=== PATIENT | female | born 1950 | race Caucasian/White ===

== ENCOUNTER 2019-10-04 08:30 | Inpatient (IN) ==
--- NOTE | 2019-09-13 12:36 | PAT Medication Instructions ---
Medication Instructions Date of Service September 13, 2019 Home Medications alprazolam 0.25 mg PO DAILY PRN cholecalciferol (vitamin D3) [Vitamin D3] 2,000 unit PO QPM duloxetine [Cymbalta] 60 mg PO QPM ibuprofen [Motrin IB] 200 mg PO QID PRN turmeric-turmeric ext-pepper 1,200 mg PO QPM vitamin N04-tzhmm acid 1 tab PO QPM meloxicam 15 mg PO QAM ASK your surgeon for instructions ibuprofen [Motrin IB] 200 mg PO QID PRN meloxicam 15 mg PO QAM STOP taking 2 weeks before surgery If surgery is within 2 weeks, stop taking as soon as possible. turmeric-turmeric ext-pepper 1,200 mg PO QPM Take morning of surgery With a small sip of water, OTHERWISE NOTHING TO EAT OR DRINK AFTER MIDNIGHT: alprazolam 0.25 mg PO DAILY PRN (if needed) Take evening before surgery alprazolam 0.25 mg PO DAILY PRN (if needed) cholecalciferol (vitamin D3) [Vitamin D3] 2,000 unit PO QPM duloxetine [Cymbalta] 60 mg PO QPM vitamin E20-xukli acid 1 tab PO QPM Other Notes If you have any questions please call us at [phone] or [phone] or [phone] or [phone]
--- NOTE | 2019-09-13 14:17 | Anesthesiology Consultation ---
Date of Service September 13, 2019 Assessment & Plan (1) Encounter for pre-operative examination: Chart Review Chart Review: Acceptable Risk for Surgery and Patient seen in Pre Admission Testing Teaching & Discussion Instructed NPO after midnight before surgery, except medications with 15 cc of water. Medication instructions provided according to the PAT guidelines. History Surgery Operation Date: 10/04/19 09:20 Proposed Procedures p Right Reverse Total Shoulder Arthroscopy - Eyad Young, Height/Weight Height: 5 ft 5 in Weight: 122.7 kg Allergies Allergy/AdvReac Type Severity Reaction Status Date / Time No Known Drug Allergies Allergy Unknown . Verified 09/13/19 11:50 Medications Home Medications Medication Instructions Recorded Confirmed Last Taken alprazolam 0.25 mg PO DAILY PRN 03/25/19 09/13/19 Unknown cholecalciferol (vitamin D3) 2,000 unit PO QPM 03/25/19 09/13/19 Unknown [Vitamin D3] duloxetine [Cymbalta] 60 mg PO QPM 03/25/19 09/13/19 Unknown ibuprofen [Motrin IB] 200 mg PO QID PRN 03/25/19 09/13/19 Unknown turmeric-turmeric ext-pepper 1,200 mg PO QPM 03/25/19 09/13/19 Unknown vitamin X58-wppkh acid 1 tab PO QPM 03/25/19 09/13/19 Unknown meloxicam 15 mg PO QAM 09/09/19 09/13/19 Unknown Past Medical History Medical History Anxiety Depression Fibromyalgia Morbid obesity Osteoarthritis Sleep apnea CPAP 13/ Exercise / Class Metabolic Activity II 4-5 Yardwork/Stairs/Walk up hill (Pt denies any chest pain but + SOB with 1 F OS -- does not have to stop to catch her breath but is huffing and puffing a little by the top. Does stairs daily at home.) Pt feels CABELLO is 2/2 obesity. Past Family History Family History Grandfather (Maternal) Colon cancer Past Surgical History Surgical History History of arthroscopy of right knee History of hysteroscopy D+C History of repair of rotator cuff LEFT Hx of cataract surgery BILAT Past Anesthesia History No Hx of Anesthesia Complications and No Family Hx of Anesthesia Complications History of PONV No Hx of PONV and No Hx of Motion Sickness Social History Smoking Status: Never smoker Do You Dip or Chew Tobacco: No Hx Alcohol Use: Yes Alcohol type: wine alcohol intake frequency: other Alcohol Intake Frequency Comment: RARE Hx Substance Use: No substance use type: does not use Review of Systems Pt denies any recent chest pain, shortness of breath above baseline, palpitations, cough, fever or URI. Physical Exam Vital Signs BP: 143/85 P: 78bpm SPO2: 95% RA T: 98.1 F R: 16 Constitutional + obese ENMT Mouth: + dental restorations (possibly a few crowns on molars) and + macroglossia; no chipped teeth and no loose teeth Thyromental Distance: > or= 3.5 Finger Breadths (3.5) Mallampati Class: III Neck + thick neck; neck extension not limited Respiratory normal respiratory effort Auscultation: lungs clear to auscultation bilaterally Cardiovascular Rate/Rhythm: regular rate and regular rhythm Heart Sounds: no murmur Vessels: no carotid bruit Extremities: no edema Testing Laboratory Results 09/13/19 14:30 09/13/19 14:30 PT 10.0 Seconds (9.0-12.0) 09/13/19 14:30 INR 1.0 (0.9-1.1) 09/13/19 14:30 APTT 25.6 Seconds (21.0-31.0) 09/13/19 14:30 Blood Type O Positive 09/13/19 14:30 Antibody Screen NEGATIVE 09/13/19 14:30 Electrocardiogram Date: 05/04/19 Sinus rhythm at 79 bpm. Probable left atrial enlargement. Left anterior fascicular block. Abnormal R wave progression, late transition. Prolonged QT interval. *Pt had further evaluation with echo/stress as below Chest X-Ray Date: 09/13/19 Findings: + NAD Mild cardiomegaly. Echocardiogram Date: 05/06/19 EF: 55-60% Normal LV size and systolic function. The estimated LVEF is 55 to 60%. Normal RV size and function. Thickened mitral valve. Normal diastolic function. Microbubble contrast with Definity was administered for LV opacification. Stress Test Date: 05/06/19 Type: nuclear Resting EF: 63% Normal regadenoson SPECT myocardial perfusion study. There is no ischemia or infarction. The LV is normal in size. EF 60%. Prognostically this is a low risk study.
--- NOTE | 2019-09-13 15:06 | XRay Report ---
XR chest Pre-admission PA/Lat CLINICAL HISTORY: 69 years-old Female presenting with preoperative assessment. TECHNIQUE: PA and lateral views of the chest were obtained. COMPARISON: None. FINDINGS: Cardiac silhouette mildly enlarged. Lungs and pleural spaces clear. Mild degenerative changes of the thoracic spine. Upper abdomen normal. IMPRESSION: 1. Mild callus megaly. No other convincing evidence of acute cardiopulmonary disease. ACT 112: Negative or not required by law. Electronically signed by: Juan Morales M.D. 09/13/2019 3:05 PM
[2019-09-13 15:50] LABS: Basophils # (auto) 0.03 K/uL (0-0.2); Basophils % (auto) 0.4 %; Eosinophils # (auto) 0.21 K/uL (0-0.5); Eosinophils % (auto) 2.7 %; Hematocrit (blood only) 40.6 % (37-47); Hemoglobin 13.2 g/dL (12.0-16.0); Immature Granulocytes # (auto) 0.02 K/uL (0.00-0.02); Immature Granulocytes % (auto) 0.3 %; Lymphocytes % (auto) 24.4 %; Mean Corpuscular Hemoglobin 28.8 pg (25-34); Mean Corpuscular Hgb Conc 32.5 g/dL (32-36); Mean Corpuscular Volume 88.6 fL (80-100); Mean Platelet Volume 10.7 fL (7.4-10.4); Monocytes # (auto) 0.76 K/uL (0.11-0.59); Monocytes % (auto) 9.8 %; Neutrophils # (auto) 4.87 K/uL (1.4-6.5); Neutrophils % (auto) 62.4 %; Platelet Count 279 K/uL (130-400); RDW Coefficient of Variation 14.1 % (11.5-14.5); RDW Standard Deviation 45.9 fL (36.4-46.3); Red Blood Count 4.58 M/uL (4.2-5.4); White Blood Count 7.79 K/uL (4.8-10.8)
[2019-09-13 16:07] LABS: Partial Thromboplastin Ratio 0.9; Partial Thromboplastin Time 25.6 Seconds (21.0-31.0)
[2019-09-13 16:13] LABS: BUN Creatinine Ratio 16.3 (10-20); Calcium 8.7 mg/dl (8.5-10.1); Creatinine Clr Calc Pharmacy 96.9 ml/min; Est GFR (Non-African American) 86.3; Potassium 3.7 mmol/L (3.5-5.1)
--- NOTE | 2019-09-30 08:20 | History & Physical Report ---
Date of Service September 30, 2019 Assessment & Plan (1) Rotator cuff arthropathy of right shoulder: We will proceed with a right reverse shoulder arthroplasty. Postoperatively she will be kept overnight in the hospital for postoperative medical management. She plans to use [facility] versus [facility] for therapy upon discharge. Present on Admission?: Yes History of Present Illness Chief Complaint: Rotator cuff arthropathy of the right shoulder Primary Care Provider: Rafia Edgar MD Lali is a very pleasant 69-year-old female who has been dealing with increasing shoulder pain and weakness. Recent MRI shows a large retracted rotator cuff tear. There is also some mild arthritis. After failing conservative treatment, she has elected to proceed with a reverse right shoulder arthroplasty. Allergies Allergy/AdvReac Type Severity Reaction Status Date / Time No Known Drug Allergies Allergy Unknown . Verified 09/13/19 11:50 Home Medications Home Medications Medication Instructions Recorded Confirmed Type alprazolam 0.25 mg PO DAILY PRN 03/25/19 09/13/19 History cholecalciferol (vitamin D3) 2,000 unit PO QPM 03/25/19 09/13/19 History [Vitamin D3] duloxetine [Cymbalta] 60 mg PO QPM 03/25/19 09/13/19 History ibuprofen [Motrin IB] 200 mg PO QID PRN 03/25/19 09/13/19 History turmeric-turmeric ext-pepper 1,200 mg PO QPM 03/25/19 09/13/19 History vitamin B46-ilize acid 1 tab PO QPM 03/25/19 09/13/19 History meloxicam 15 mg PO QAM 09/09/19 09/13/19 History Past Med/Surg History Medical History Anxiety Depression Fibromyalgia Morbid obesity Osteoarthritis Sleep apnea CPAP 13/ Surgical History History of arthroscopy of right knee History of hysteroscopy D+C History of repair of rotator cuff LEFT Hx of cataract surgery BILAT Family History Grandfather (Maternal) Colon cancer Social History Preferred Language: Argentine Communication Ability: Effective Marketing Mgr Required: No Beliefs That Will Affect Care: None Current Living Situation: Alone Feels Safe at Home: Yes Smoking Status: Never smoker Second Hand Exposure: No ; Hx Alcohol Use: Yes Alcohol type: wine Hx Substance Use: No Review of Systems All systems reviewed & are unremarkable except as noted in HPI & below Physical Exam Constitutional: WD/WN, vitals as above Eyes: PERRL, conjunctivae normal, anicteric sclerae ENMT: external ear and nose normal, oropharynx normal Neck: trachea midline, no thyromegaly Respiratory: normal respiratory effort Cardiovascular: RRR, no murmur, no edema Gastrointestinal (Abdomen): normal bowel sounds, soft, nontender, no hepatosplenomegaly Musculoskeletal: Physical examination of the right shoulder reveals decreased range of motion and significant weakness. There is tenderness palpation along the anterior glenohumeral joint line. The right upper extremity is neurovascularly intact. Psychiatric: A+Ox3, euthymic affect Results & Data Diagnostic Findings Radiographs of the right shoulder show some signs of osteoarthritis with blunting of the greater tuberosity and some superior migration of the humeral head on the glenoid.
[~2019-10-04 08:30] MED LIST: ACETAMINOPHEN 500 MG TAB PO SCH; BUPIVACAINE 0.5 % 5 MG/1 ML PF 10ML VIAL ONE; CEFAZOLIN 3000MG 72.5 ML IV SCH; FAMOTIDINE 20 MG TAB PO SCH; GABAPENTIN 300 MG CAP PO SCH; LR 15ML/HR IV SCH; LR 60ML/HR IV SCH; ROPIVACAINE 0.5% HCL/PF 150 MG, BUPIVACAINE 0.5% MPF 30 ML, EPINEPHrine 30MG/30ML (OR U... INSTIL SCH; TRANEXAMIC ACID 1,000 MG **IV Intra-op IV SCH; TRANEXAMIC ACID 1,000 MG **IV Pre-op IV SCH; dexAMETHasone 4 MG TAB PO SCH
--- NOTE | 2019-10-04 08:53 | History & Physical Bridge Note ---
Date of Service October 04, 2019 History & Physical Bridge Note I have examined the patient, reviewed the History & Physical and in the interval since the performance of the History & Physical I have noted the following changes of clinical significance: no changes noted
[2019-10-04] MEDS ORDERED: ONDANSETRON INJ 2 MG/ML 2 ML VIAL ONE (10:14)
[2019-10-04] MEDS ORDERED: ROCURONIUM BROMIDE 10 MG/ML 5 ML VIAL ONE (10:14)
[2019-10-04] MEDS ORDERED: LIDOCAINE HCL 2% 2 ML VIAL/AMP(20MG/ML) INFIL ONE (10:14)
[2019-10-04] MEDS ORDERED: MIDAZOLAM HCL 1 MG/ML 2ML VIAL ONE (10:14)
[2019-10-04] MEDS ORDERED: fentaNYL citrate 100 MCG/2 ML VIAL ONE (10:14)
[2019-10-04] MEDS ORDERED: PROPOFOL IV EMULSION 10 MG/ML 20 ML VIAL IV ONE (10:14)
[2019-10-04] MEDS ORDERED: DEXAMETHASONE SOD INJ 4 MG/ML VIAL ONE (10:14)
[2019-10-04] MEDS ORDERED: ONDANSETRON INJ 2 MG/ML 2 ML VIAL IV PRN ×2 (10:36→14:49)
[2019-10-04] MEDS ORDERED: ATROPINE SULFATE 0.1 MG/ML 10ML SYR IV PRN (10:36)
[2019-10-04] MEDS ORDERED: ePHEDrine sulfate 50 MG/ML AMP IV PRN (10:36)
[2019-10-04] MEDS ORDERED: fentaNYL citrate 100 MCG/2 ML VIAL IV PRN (10:36)
[2019-10-04] MEDS ORDERED: ORTHO JOINT ANESTHETIC ONE (11:21)
[2019-10-04] MEDS ORDERED: NEOSTIGMINE METHYLSULFATE 5 MG/5 ML SYR ONE (12:03)
[2019-10-04] MEDS ORDERED: ePHEDrine sulfate 50 MG/ML SYR ONE (12:03)
[2019-10-04] MEDS ORDERED: GLYCOPYRROLATE 0.2 MG/ML VIAL ONE (12:03)
--- NOTE | 2019-10-04 12:59 | Operative Report ---
PG Post Operative Report Pre & Post Diagnosis Operation Date: 10/04/19 10:55 Pre-Op Diagnosis: Right Shoulder rotator cuff arthropathy with tendinopathy of the long head of the biceps tendon Post-Op Diagnosis: Right Shoulder rotator cuff arthropathy with tendinopathy of the long head of the biceps tendon I identified the patient and participated in the time-out.: Yes Procedure Operation Date: 10/04/19 10:55 Actual Procedures p Right Reverse Total Shoulder arthroplasty with open biceps tenodesis of the long head of the biceps tendon as a separate procedure (modifier 59) (Right) - Eyad Young DO Surgeon Eyad Young DO Licensing Analyst Eyad Torres PAC Estimated Blood Loss 250 Findings Consistent with Post-Op Diagnosis Specimens Right humeral head Complications none Disposition Disposition: Recovery Room Indications Gabrielle is a pleasant 69-year-old female who is been dealing with chronic increasing pain and weakness of her right shoulder. Is gotten much worse recently. MRI and clinical examination showed a massive chronic retracted rotator cuff tear. After failing conservative treatment, she elected to proceed with a right reverse shoulder arthroplasty. Description of Procedure A CPT code modifier 59: The long head of the biceps tendon was enlarged and inflamed consistent with tendinopathy. A tenodesis was opted. This was a separate and distinct portion of the procedure. For these reasons, a CPT code modifier 59 will be added to this case. Implants used: I used a [employer] Comprehensive reverse total shoulder arthroplasty system with a size 9 press fit mini humeral stem, a +3 offset humeral tray and a standard humeral bearing, a 25 mm mini baseplate with a 6.5 mm central screw and superior and inferior locking screws, and a size 36 mm eccentric glenosphere. Gabrielle arrived at [facility] for the above procedure. She was seen in the preoperative holding area and the operative extremity was identified and signed. She was given a preoperative antibiotic, TXA, and an interscalene nerve block. She was taken back to the operating room, laid on table in supine position, and put under general anesthesia. She was then put into the beachchair position. The shoulder was then prepped and draped in sterile fashion. A timeout was done and the patient and the operative extremity was properly identified. A deltopectoral approach was used. Dissection was taken down through the fascia and the deltoid was retracted laterally and the conjoined tendon was retracted medially. The anterior shoulder was exposed. The biceps groove was opened up and the biceps tendon was examined extensively. The biceps tendon demonstrated enlargement and inflammatory changes consistent with longstanding inflammation in the context of osteoarthritis and cuff arthropathy. The long head of the biceps tendon was then tenodesed to the upper border of the pectoralis major. This was a separate and distinct portion of the procedure. The subscapularis was then directly released off the lesser tuberosity with a peel technique. The inferior capsule was released and the humeral head was dislocated. A canal finding reamer was sent down the center of the humeral canal. Sequential reaming up to a size 9 reamer was done. Off that reamer, a proximal humeral resection guide was placed. The proximal humerus was resected at 135 of inclination and 25 of retroversion. Osteophytes were then removed and the glenoid was exposed. Time was spent doing a complete capsular and labral release. The glenoid guide was then placed in the inferior aspect of the glenoid. A 3.2 mm Steinmann pin was then placed into the glenoid vault at 10 of inclination. The glenoid baseplate was then reamed. The final size 25 mm mini baseplate was then impacted in the place. A 6.5 mm central screw was then placed followed by superior and inferior locking screws. A 36 mm eccentric glenosphere was then impacted into place. Surrounding soft tissues were then injected with 100 cc an orthopedic pain control cocktail. The proximal humerus was then exposed. Sequential broaching of the humerus up to a size 9 broach was done. Off that broach a +3 offset humeral tray was trialed. The shoulder was then reduced, brought through a full range of motion, and felt to be stable. The shoulder was then dislocated and the broach was removed. The final size 9 mini press-fit humeral stem was then impacted into place. A standard humeral bearing was then snapped onto a +3 offset humeral tray. The humeral tray was then impacted onto the humeral stem. The shoulder was once again reduced, brought through a full range of motion, and felt to be stable. The subscapularis was then tenodesed back to the lesser tuberosity with transosseous FiberWire sutures and side to side sutures with the arm in 45 of external rotation. A dilute betadyne lavage was then done for 3 minutes. The joint was then irrigated with normal saline solution. Hemostasis was obtained. The interval was closed with 2-0 Vicryl suture. The skin was then closed with 2-0 Vicryl and darryn. A soft dressing was placed and the arm was rested in a regular arm sling. She was then extubated and transferred to a hospital bed. She taken to the postanesthesia care unit in stable condition. She tolerated the procedure well. Eyad Torres PA-C, was present for the entire procedure. He was critical for patient positioning, prepping, draping, retraction exposure, wound closure and application of sterile dressing. I attest to the content of the Intraoperative Record and any orders documented therein. Any exceptions are noted below.
--- NOTE | 2019-10-04 13:49 | XRay Report ---
XR shoulder RT min 2V routine CLINICAL HISTORY: Post shoulder surgery COMPARISON STUDY: None. FINDINGS: Status post reverse right total shoulder arthroplasty. The hardware appears intact. No frac ture or dislocation. Skin darryn are in place. IMPRESSION: Status post reverse right total shoulder arthroplasty. No evidence for hardware complica tion. ACT 112: Negative or not required by law. Electronically signed by: Arnaldo Arteaga M.D. 10/04/2019 1:47 PM
--- NOTE | 2019-10-04 14:45 | Anesthesiology Progress Note ---
Date of Service October 04, 2019 Anesthesia Post Procedure Vital Signs Vital Signs: Temp Pulse Pulse Resp BP Pulse Ox 10/04/19 14:15 75 17 123/75 97 10/04/19 14:00 97.7 F 64 17 122/78 97 10/04/19 13:50 69 24 123/83 96 10/04/19 13:40 90 21 125/79 95 10/04/19 13:30 80 19 131/84 93 10/04/19 13:21 97.3 F L 81 19 143/85 H 93 10/04/19 11:32 97.3 F L 77 18 121/66 95 10/04/19 11:20 79 18 117/61 95 10/04/19 11:10 72 18 92/62 L 95 10/04/19 08:58 98.2 F 70 20 131/81 96 Pain Intensity Right Shoulder: Pain Intensity: 0 Transfer of Care Handoff Completed per policy Notes Mental Status: alert / awake / arousable and participated in evaluation Patient Amnestic to Procedure: Yes Nausea / Vomiting: adequately controlled Pain: adequately controlled Airway Patency, RR, SpO2: stable & adequate BP & HR: stable & adequate Hydration State: stable & adequate Anesthetic Complications: no major complications apparent and Pt Satisfied with anesthetic care
[2019-10-04] MEDS ORDERED: ALPRAZolam 0.25 MG TABLET PO PRN (14:49)
[2019-10-04] MEDS ORDERED: HYDROmorphone INJ 0.5 MG/0.5 ML SYR IV PRN (14:49)
[2019-10-04] MEDS ORDERED: METOCLOPRAMIDE HCL INJ 5 MG/ML 2 ML VIAL IV PRN (14:49)
[2019-10-04] MEDS ORDERED: NALOXONE HCL 0.4 MG/1 ML VIAL/CARP IV PRN (14:49)
[2019-10-04] MEDS ORDERED: OXYCODONE HCL IR 5 MG TAB (IMMEDIATE RELEASE) PO PRN (14:49)
[2019-10-04] MEDS ORDERED: MAGNESIUM HYDROXIDE SUSP 30 ML UDC PO PRN (14:49)
[2019-10-04] MEDS ORDERED: bisacodyL 10 MG SUPP PR PRN (14:49)
[2019-10-04] MEDS: ACETAMINOPHEN 500 MG TAB PO SCH (16:19)
[2019-10-04] MEDS: SODIUM CHLORIDE 0.9% 1000ML 1,000 ML IV SCH (16:19)
[2019-10-04] MEDS: KETOROLAC TROMETHAMINE 15 MG/ML VIAL IV SCH (18:29)
[2019-10-04] MEDS: CEFAZOLIN 2000MG 2,000 MG/15 ML SYR IV SCH (18:29)
[2019-10-04] MEDS: SENNA 8.6 MG TAB PO SCH ×2 (20:58→21:00)
[2019-10-04] MEDS: DOCUSATE SODIUM 100 MG CAP PO SCH ×2 (20:58→21:00)
[2019-10-04] MEDS ORDERED: DULOXETINE HCL 60 MG CAP PO SCH (21:00)
[2019-10-05] MEDS: ACETAMINOPHEN 500 MG TAB PO SCH ×2 (00:10→08:37)
[2019-10-05] MEDS: KETOROLAC TROMETHAMINE 15 MG/ML VIAL IV SCH ×3 (00:12→11:32)
[2019-10-05] MEDS: SODIUM CHLORIDE 0.9% 1000ML 1,000 ML IV SCH (01:58)
[2019-10-05] MEDS: CEFAZOLIN 2000MG 2,000 MG/15 ML SYR IV SCH (02:00)
--- NOTE | 2019-10-05 06:06 | Orthopedic Progress Note ---
Date of Service October 05, 2019 Assessment & Plan (1) History of reverse total replacement of right shoulder joint: Overall she is doing very well. She is not having much pain in the right shoulder. She will be seen by physical therapy this morning for ambulation and range of motion exercises. She can be discharged home later today. She will follow-up with orthopedics in 2 weeks. Present on Admission?: Yes Silvana Anthony was seen and examined at bedside this morning. Overall she is doing very well. She is not having any pain in the right shoulder. She was able to get some sleep last night. She has no complaints. Physical Exam Musculoskeletal: On physical examination of the right shoulder, the dressing is clean and dry. She is wearing her sling as instructed. Her radial, median, and ulnar nerves are checked and intact at her wrist. Her axillary nerve was not checked yet. Results & Data ([facility]) Vital Signs (Past 12 Hours) Vital Signs Temp Pulse Resp BP Pulse Ox 10/05/19 03:23 92 10/05/19 03:15 36.8 C 95 H 20 102/65 88 L 10/04/19 23:56 36.6 C 89 20 105/65 90 Diagnostic Findings Postoperative x-rays of the right shoulder show the prosthesis to be in anatomic alignment without any evidence of fracture, dislocation, or loosening. PG Care Time/CCT Total # of Minutes Spent Total Time Spent with Patient: Total time spent is greater than 50% in coordination of care (as documented) at patient's floor/unit and/or counseling patient: Coding Level of Care Code None Diagnoses History of reverse total replacement of right shoulder joint Z98.890
--- NOTE | 2019-10-05 06:07 | Discharge Summary ---
Date of Service October 05, 2019 Admission HPI Per Admitting Provider Lali is a very pleasant 69-year-old female who has been dealing with increasing shoulder pain and weakness. Recent MRI shows a large retracted rotator cuff tear. There is also some mild arthritis. After failing conservative treatment, she has elected to proceed with a reverse right shoulder arthroplasty. Principal Diagnosis Right reverse shoulder arthroplasty Discharge Data Allergies Allergy/AdvReac Type Severity Reaction Status Date / Time No Known Drug Allergies Allergy Unknown . Verified 10/04/19 08:55 Consultations 10/04/19 14:49 Consult Case Management - Discharge Planning Routine Procedures Performed Operation Date: 10/04/19 10:55 Actual Procedures p Right Reverse Total Shoulder Arthroscopy(Right) - Eyad Young DO Ordered Studies 10/04/19 05:00 US - OR guided needle placemen Urgent Hospital Course (1) History of reverse total replacement of right shoulder joint: On October 04, 2019 Lali arrived at [facility] and underwent a right reverse shoulder arthroplasty without complication. She had a general anesthetic and a right interscalene nerve block. Postoperatively she was placed in a sling and transferred to general orthopedic floors. Her hospital course was uneventful. On postop day #1 her H&H was stable and her pain was well controlled. She was able to participate well with physical therapy doing ambulation and range of motion exercises. She was then discharged home. She will follow-up with orthopedics in 2 weeks. Total Time Total Time Spent Total Time Spent (In Minutes): 20 Discharge Plan Discharge Items Patient Disposition: Home - Home Health Services Reason For Visit: Right Shoulder Degenerative Joint Disease Discharge Diagnosis: Right reverse shoulder arthroplasty Activity: As commented below Non-emergency contact: Surgeon Call non-emergency contact if: your wound has increased redness and your wound has increased drainage Follow-up/Referrals: Rafia Edgar MD [Primary Care Provider] - Diet: Regular Addtl Attending Provider Instructions: Activity and Therapy Recommendations: * If you are using [facility] then therapy will be provided at your home until they feel you have accomplished all of your goals. * If you are using [facility] then Physical Therapy will be provided until they feel you are ready to start Outpatient Physical Therapy. * If you are not using home therapy then Outpatient Physical Therapy should start about 3-5 days from your day of surgery. Therapy will last about 8-12 weeks * Wear your sling for 3 weeks, unless otherwise instructed. You may remove your sling to shower and to dress, but otherwise, you should be in your sling at all times, including while sleeping * The shoulder replacement is very stable and you can use your hand while in the sling * You were shown a series of exercises in the hospital. Do these exercises daily including the exercises you were shown in physical therapy. Medications: * Narcotic You will likely be sent home from the hospital with a prescription for the narcotic pain medication that worked best throughout your stay. * Other medications may be prescribed for specific circumstances. If you have any questions, please call the office at . * Resume previous home medications unless otherwise instructed Dressing Care: Leave the plastic dressing in place for 5 days. After 5 days you may remove the plastic dressing. If the incision is not draining then you may leave the darryn open to air. If there is a little bit of drainage or if the darryn are getting stuck on your clothing then cover the incision with a dry dressing. The darryn will be removed at your 2 week follow-up appointment. Showering: You may shower with the plastic dressing in place. Let the shower spray hit the other shoulder. You can pat the plastic dry. If the dressing becomes wet underneath the plastic then simply remove the dressing. Keep the incision dry until you are 5 days out from the day of surgery. At that time you can shower with the darryn exposed. Let the soapy shower water run over the darryn and pat them dry. Do not scrub or soak the incision. Things To Watch For: * Drainage from the incision site that occurs more than one week after your surgery. * Increased redness at the incision site. * Fever above 102 degrees Fahrenheit. * Unusual chest pain or shortness of breath. * Call [facility] at with any of the above problems Follow-Up Visit: Follow-up with Dr. Young 2-3 weeks after your day of surgery. An appointment was probably scheduled when you signed-up for surgery in the office. If you have any questions call Office Instructions: More detailed instructions as well as Frequently Asked Questions were provided in a folder by our office when you signed-up for surgery. Please review these instructions when you get home. If you have any further questions or concerns, please feel free to call the office at [phone] Pending Studies at Discharge: No Stand-Alone Forms: [facility], Smoking Cessation Medications and DC Order Prescriptions: New hydrocodone-acetaminophen [Hinckley] 5-325 mg tablet 1 tab PO Q6H PRN (Reason: pain) Qty: 30 RF: 0 Continued ibuprofen [Motrin IB] 200 mg Capsule 200 mg PO QID PRN (Reason: Pain) RF: 0 alprazolam 0.25 mg Tablet 0.25 mg PO DAILY PRN (Reason: Anxiety) RF: 0 duloxetine [Cymbalta] 60 mg Capsule,Delayed Release(Dr/Ec) 60 mg PO QPM RF: 0 cholecalciferol (vitamin D3) [Vitamin D3] 2,000 unit Capsule 2,000 unit PO QPM RF: 0 vitamin V87-bogei acid 500-400 mcg Tablet 1 tab PO QPM RF: 0 turmeric-turmeric ext-pepper 500-3 mg Capsule 1,200 mg PO QPM RF: 0 meloxicam 15 mg tablet 15 mg PO QAM RF: 0 Discharge Orders: Discharge Order (Routine); Ordered 10/05/19 Ordered By: Eyad Young Admission Data Admit Date/Time: 10/04/19 13:24 Attending Provider: Eyad Young Admit Provider: Eyad Young Primary Care Provider: Rafia Edgar Coding Level of Care Code D/C Day Management <30 mins Diagnoses History of reverse total replacement of right shoulder joint Z98.890
[2019-10-05 07:03] LABS: Basophils # (auto) 0.01 K/uL (0-0.2); Basophils % (auto) 0.1 %; Hematocrit (blood only) 36.1 % (37-47); Hemoglobin 11.5 g/dL (12.0-16.0); Immature Granulocytes # (auto) 0.04 K/uL (0.00-0.02); Immature Granulocytes % (auto) 0.3 %; Lymphocytes # (auto) 1.06 K/uL (1.2-3.4); Lymphocytes % (auto) 7.9 %; Mean Corpuscular Hemoglobin 28.2 pg (25-34); Mean Corpuscular Hgb Conc 31.9 g/dL (32-36); Mean Corpuscular Volume 88.5 fL (80-100); Mean Platelet Volume 10.2 fL (7.4-10.4); Monocytes # (auto) 1.07 K/uL (0.11-0.59); Neutrophils # (auto) 11.23 K/uL (1.4-6.5); Neutrophils % (auto) 83.7 %; Platelet Count 250 K/uL (130-400); RDW Standard Deviation 45.7 fL (36.4-46.3); Red Blood Count 4.08 M/uL (4.2-5.4); White Blood Count 13.41 K/uL (4.8-10.8)
[2019-10-05 07:38] LABS: BUN Creatinine Ratio 14.6 (10-20); Calcium 8.3 mg/dl (8.5-10.1); Creatinine Clr Calc Pharmacy 75.3 ml/min; Est GFR (African American) 75.1; Est GFR (Non-African American) 64.8; Potassium 3.9 mmol/L (3.5-5.1)
[2019-10-05] MEDS ORDERED: dexAMETHasone 4 MG TAB PO SCH (08:00)
--- NOTE | 2019-10-05 08:12 | Anesthesiology Progress Note ---
Date of Service October 05, 2019 Anesthesia Post Procedure Vital Signs Vital Signs: Temp Pulse Pulse Pulse Resp BP Pulse Ox 10/05/19 07:22 36.6 C 72 20 126/72 93 10/05/19 03:23 92 10/05/19 03:15 36.8 C 95 H 20 102/65 88 L 10/04/19 23:56 36.6 C 89 20 105/65 90 10/04/19 16:47 36.7 C 96 H 17 118/70 93 10/04/19 15:50 36.4 C L 94 H 17 148/77 H 93 10/04/19 15:07 36.8 C 87 16 118/76 93 10/04/19 14:49 36.5 C 19 131/77 93 10/04/19 14:15 75 17 123/75 97 10/04/19 14:00 36.5 C 64 17 122/78 97 10/04/19 13:50 69 24 123/83 96 10/04/19 13:40 90 21 125/79 95 10/04/19 13:30 80 19 131/84 93 10/04/19 13:21 36.3 C L 81 19 143/85 H 93 10/04/19 11:32 36.3 C L 77 18 121/66 95 10/04/19 11:20 79 18 117/61 95 10/04/19 11:10 72 18 92/62 L 95 10/04/19 08:58 36.8 C 70 20 131/81 96 Pain Intensity Right Shoulder: Pain Intensity: 0 Notes Mental Status: alert / awake / arousable and participated in evaluation Patient Amnestic to Procedure: Yes Nausea / Vomiting: adequately controlled Pain: adequately controlled Airway Patency, RR, SpO2: stable & adequate BP & HR: stable & adequate Hydration State: stable & adequate Anesthetic Complications: no major complications apparent and Pt Satisfied with anesthetic care
[2019-10-05] MEDS: DOCUSATE SODIUM 100 MG CAP PO SCH (08:40)
[2019-10-05] MEDS ORDERED: MULTIVITAMIN TAB PO SCH (09:00)
== END 2019-10-05 14:29 | disposition home or self-care (01) | DRG 483 ==
LOC: ASU 08:30 → 3E 13:24